=== PATIENT | female | born 1965 | race Caucasian/White ===

== ENCOUNTER → 2017-08-24 | Day surgery (SDC) | payer OTHER ==
[2017-08-18 14:38] LABS: BASOPHILS % 0.3 % (0.0-1.0); EOSINOPHILS # (AUTO) 0.1 (0.0-0.4); EOSINOPHILS % 0.8 % (0.0-6.0); HEMATOCRIT 34.9 % (34.2-44.1); HEMOGLOBIN 11.9 g/dL (12.0-16.0); LYMPHOCYTES # (AUTO) 2.2 (1.0-3.2); MEAN CORPUSCULAR HEMOGLOBIN 31.8 pg (28-32); MEAN CORPUSCULAR HGB CONC 34.1 g/dL (31-35); MEAN CORPUSCULAR VOLUME 93.3 fL (81-99); MONOCYTES # (AUTO) 0.7 (0.2-0.8); MONOCYTES % 9.6 % (4.4-11.3); NEUTROPHILS # (AUTO) 4.5 (2.1-6.9); NEUTROPHILS % 59.8 % (38.7-80.0); PLATELET COUNT 191 x10e3/uL (140-360); RED BLOOD COUNT 3.74 x10e6/uL (3.6-5.1); RED CELL DISTRIBUTION WIDTH 12.9 % (11.7-14.4)
--- NOTE | 2017-08-18 14:54 | Diagnostic Imaging Report ---
PROCEDURE: X-RAY CHEST, TWO VIEWS COMPARISON: None. INDICATIONS: KIDNEY STONES FINDINGS: LUNGS: No consolidations or edema. PLEURA: No effusions or pneumothorax. HEART \T\ MEDIASTINUM: The cardiomediastinal silhouette is unremarkable. BONES \T\ SOFT TISSUES: No acute findings. CONCLUSION: No acute thoracic abnormality. Dictated by: DIAN WELCH M.D. on 08/18/2017 at 14:59 Electronically approved by: DIAN WELCH M.D. on 08/18/2017 at 14:59
[2017-08-18 15:08] LABS: ANION GAP 13.6 mmol/L (8-16); BLOOD UREA NITROGEN 12 mg/dL (7-26); BUN/CREATININE RATIO 16 (6-25); CALCIUM 9.1 mg/dL (8.4-10.2); CARBON DIOXIDE 24 mmol/L (22-29); CHLORIDE 106 mmol/L (98-107); CREATININE, SERUM 0.77 mg/dL (0.57-1.11); EST GLOMERULAR FILTRATION RATE > 60 ML/MIN (60-); GLUCOSE 102 mg/dL (74-118); POTASSIUM 3.6 mmol/L (3.5-5.1); SODIUM 140 mmol/L (136-145)
[~2017-08-24] MED LIST: CEFTRIAXONE SOD 1 GM VIAL ONE; DEXAMETHASONE SOD PHOS INJ 4 MG/ML VIAL ONE; FENTANYL CITRATE/PF 100MCG/2 ML INJ ONE; IOPAMIDOL 300MG/ML 50ML INFUS..BTL IV ONE; LIDOCAINE HCL 2% LOCAL INJ 5 ML SDV VIAL INJ ONE; MIDAZOLAM HCL 2 MG/2 ML VIAL ONE; ONDANSETRON HCL INJ 2 MG/ML VIAL ONE; PROPOFOL IV EMULSION 10 MG/ML 20 ML VIAL ONE; SEVOFLURANE INHAL SOLN 250 ML PEN BTL ONE
--- NOTE | 2017-08-25 18:34 | Operative Report ---
DATE OF PROCEDURE: August 24, 2017 PREOPERATIVE DIAGNOSIS: Left kidney stone with left flank pain. POSTOPERATIVE DIAGNOSIS: Left kidney stone with left flank pain. OPERATIVE PROCEDURES PERFORMED 1. Cystoscopy. 2. Bilateral retrograde pyelogram. 3. Placement of left ureteral stent. ANESTHESIA: General anesthesia. ESTIMATED BLOOD LOSS: Minimal. INDICATIONS: Jennifer Rayo is a 52-year-old woman with a history of intermittent left flank pain, which has been disabling. Evaluation revealed only a small stone in the left kidney. There was no hydronephrosis noted. The patient has continued flank pain, which remains disabling. She now presents for definitive diagnosis and management of this problem. PROCEDURE IN DETAIL: The patient was brought into the operating room, placed in supine position, after administration of general anesthesia was placed in the dorsal lithotomy position, prepped and draped in the usual sterile fashion. Cystourethroscopy was performed using a 21-Salvadorean cystoscope. Anterior and posterior urethra was noted to be normal. Bladder was entered without difficulty. Upon entrance into the bladder, the ureteral orifices were in normal anatomic position and produced clear efflux. There were no mucosal lesions identified. Using an 8-Salvadorean cone-tip catheter, first a right and subsequently a left retrograde pyelogram was performed. Both of these revealed a normal ureter and collecting system without any significant filling defects on the right. There was, however, a questionable filling defect seen in the upper pole nina on the left. There was no hydronephrosis seen on either side. Given the filling defect finding and the patient's persistent left flank pain, a decision was made to stent. A 4.5-Salvadorean stent was left such that one coil was in the renal pelvis and subsequent coil was in the bladder. The string was allowed to exit the urethral meatus, but cut short. The bladder was then drained in its entirety and the cystoscope and sheath were removed. Patient was returned to supine position and anesthesia was reversed. She was transferred to a bed and taken to the postanesthesia care unit in good condition. Of note, the needle and instrument count were correct at the conclusion of the case. Job#: [id number] [facility]
== END | disposition home or self-care (01) ==
LOC: OR 09:47
PROVIDERS: ATTEND Urology
DX: N20.0 Calculus of kidney (principal); Z88.6 Allergy status to analgesic agent; Z01.810 Encounter for preprocedural cardiovascular examination; Z01.812 Encounter for preprocedural laboratory examination; Z01.818 Encounter for other preprocedural examination; Z79.84 Long term (current) use of oral hypoglycemic drugs; Z68.30 Body mass index [BMI] 30.0-30.9, adult
CPT/HCPCS: 36415; 52332; 71046; 74420; 80048; 85025; 93005; J0696; J1100; J2001; J2250; J2405; Q9967